=== PATIENT | female | born 1960 | race Caucasian/White ===

== ENCOUNTER 2016-07-28 18:41 | Emergency (ER) | payer MEDICAID, OTHER ==
[~2016-07-28 18:41] MED LIST: ALBUTEROL SULF8.5 G2 IH; ATORVASTATIN; ATORVASTATIN CA40 M1 PO; BIAXIN500 M2 PO; DEXAMETHASONE; GLUCOPHAGE1000 M1 PO; LANTUS100 UNITS/ SC; LEVAQUIN500 M1 PO; LEVAQUIN500 MG PO; LISINOPRIL-HCTZ PO; MEDROL4 M2 PO; METFORMIN HCL500 MG PO; MUCINEX600 M1 PO; NAPHCON15 ML OP; PATANOL5 ML LEFT EYE; PROMETHAZINE-C118 ML PO; PROVENTIL HFA6.7 G1 IH; TESSALON PERLE100 M1 PO; TRADJENTA5 M1 PO; TRULICITY0.75 MG/0. SQ; ZOFRAN ODT4 MG/UDTAB PO; [UNRECOGNIZED DRUG - OTHER]
[2016-07-28] MEDS ORDERED: ASPIRIN81 M1 PO (19:28)
[2016-07-28] MEDS ORDERED: CYCLOBENZAPRINE10 M1 PO (20:29)
== END 2016-07-28 20:46 ==
LOC: EDMED 18:41
DX: S16.1XXA Strain of muscle, fascia and tendon at neck level, initial encounter (principal); E11.9 Type 2 diabetes mellitus without complications; F17.200 Nicotine dependence, unspecified, uncomplicated; Z79.899 Other long term (current) drug therapy; V49.40XA Driver injured in collision with unspecified motor vehicles in traffic accident, initial encounter; Y92.410 Unspecified street and highway as the place of occurrence of the external cause